=== PATIENT | male | born 1985 | race Asian ===

== ENCOUNTER 2021-08-12 03:59 | Emergency (ER) | payer OTHER ==
[~2021-08-12] VITALS: Ht 170.2 cm; Wt 72.0 kg
[2021-08-12 04:20] VITALS: BP 134/88
[2021-08-12] MEDS ORDERED: ACETAMINOPHEN 325MG TABLET PO ONE (05:15)
[2021-08-12] MEDS ORDERED: BUTA1CAP45 MT (06:13)
== END 2021-08-12 06:25 | disposition home or self-care (01) ==
LOC: ER 03:59
DX: R51.9 Headache, unspecified (principal)
CPT/HCPCS: 99284